=== PATIENT | female | born 2005 | race Two or more races ===

== ENCOUNTER 2025-02-06 00:36 | Emergency (ER) | payer MEDICAID ==
[~2025-02-06] VITALS: Ht 162.6 cm; Wt 55.5 kg
[2025-02-06 01:24] VITALS: BP 110/69; PULSE 87; RESP 16; TEMP 97.4; O2SAT 98
--- NOTE | 2025-02-06 02:02 | ED.PDOC ---
Back pain HPI HPI Comments PATIENT COMES WITH C/C OF LEFT THUMB PAIN AND BRUISING X 1 DAY. PATIENT DOES NOT NOW HOW IT HAPPENED REPORTS SHE JUST WOKE UP TO PAIN AND BRUISE. DENIES ANY INJURY TO THUMB Chief Complaint: Upper Extremity Time Seen by MD: 00:41 Reviewed Notes: Nurses Notes, Medications, Allergies Home Meds Active Scripts Ibuprofen Micronized (Ibuprofen) 600 Mg Tab, 600 MG PO TID for 6 Days, #18 TAB Prov:TAMARA ADDISON COOK CHILL TECHNICIAN 02/06/25 Information Source: Patient Mode of Arrival: Ambulatory Past Medical History PAST MEDICAL HISTORY: Denies Surgical History: Denies all surgeries SPOUT LINER HELPER History: No Pertinent SPOUT LINER HELPER History Family History Family History: Unknown Social History Smoker: Non-Smoker Alcohol: Denies ETOH Use Drugs: Denies Drug Use Constitutional: denies: chills, diaphoresis, fatigue, fever, malaise, sweats, weakness, others EENTM: denies: blurred vision, double vision, ear bleeding, ear discharge, ear drainage, ear pain, ear ringing, eye pain, eye redness, hearing loss, mouth pain, mouth swelling, nasal discharge, nose bleeding, nose congestion, nose pain, photophobia, tearing, throat pain, throat swelling, voice changes, others Respiratory: denies: cough, hemoptysis, orthopnea, SOB at rest, shortness of breath, SOB with excertion, stridor, wheezing, others Cardiovascular: denies: chest pain, dizzy spells, diaphoresis, Dyspnea on exertion, edema, irregular heart beat, left arm pain, lightheadedness, palpitations, PND, syncope, others Gastrointestinal: denies: abdomen distended, abdominal pain, blood streaked bowels, constipated, diarrhea, dysphagia, difficulty swallowing, hematemesis, melena, nausea, poor appetite, poor fluid intake, rectal bleeding, rectal pain, vomiting, others Genitourinary: denies: abnormal vagina bleeding, burning, dyspareunia, dysuria, flank pain, frequency, hematuria, incontinence, pain, , vagina discharge, urgency, others Neurological: denies: dizziness, fainting, headache, left sided numbness, left sided weakness, numbness, paresthesia, pre-existing deficit, right sided numbness, right sided weakness, seizure, speech problems, tingling, tremors, weakness, others Musculoskeletal: reports: others (LEFT THUMB PAIN AND BRUISING); denies: back pain, gout, joint pain, joint swelling, muscle pain, muscle stiffness, neck pain Integumetry: denies: bruises, change in color, change in hair/nails, dryness, laceration, lesions, lumps, rash, wounds, others Allergic/Immunocompromised: denies: Difficulty Healing, Frequent Infections, Hives, Itching, others Hematologic/Lymphatic: denies: anemia, blood clots, easy bleeding, easy bruising, swollen glands, others Endocrine: denies: excessive hunger, excessive sweating, excessive thirst, excessive urination, flushing, intolerance to cold, intolerance to heat, unexplained weight gain, unexplained weight loss, others Psychiatric: denies: anxiety, bipolar disorder, depression, hopeless, panic disorder, schizophrenia, sleepless, suicidal, others Physical Exam General Appearance: No Apparent Distress, Normal HEENT: Pharynx Normal Neck: Full Range of Motion, Non-Tender Respiratory: Lungs Clear, No Respiratory Distress, Normal Breath Sounds Cardiovascular: No Murmur, Normal Peripheral Pulses, Regular Rate/Rhythm Breast Exam: Deferred Gastrointestinal: Non Tender, Soft Genitalia: Deferred Pelvic: Deferred Rectal: Deferred Extremities: Normal capillary refill, Normal inspection, Normal range of motion Musculoskeletal : Location: Left Extremity Location: Thumb (NOTED ECCHYMOSIS DISTAL MEDIAL THUMB WITH MODERATE TENDERNESS ON PALPATION STRENGTH SENSORY AND MOTION INTACT CAP REFILL LESS THAN 3 SECONDS) Apperance: Normal Neurologic: Alert, solicitor patent [id number] nml as Tested, No Motor Deficits, Normal Affect, Normal Mood, No Sensory Deficits Cerebellar Function: Normal Reflexes: Normal Skin: Dry, Normal Color, Warm Lymphatic: No Adenopathy Was a procedure done? Was a procedure done?: No Back Pain Differential Dx Differential Diagnosis: Fracture, Musculoskeletal Pain, Strain X-Ray, Labs, Meds, VS Vital Signs Date Time Temp Pulse Resp B/P (MAP) Pulse Ox O2 Delivery O2 Flow Rate FiO2 02/06/25 01:24 97.4 87 16 110/69 (83) 98 97.4 02/06/25 01:24 97.4 87 16 110/69 (83) 98 97.4 02/06/25 01:24 Room Air X-Ray, Labs, Meds, VS Comment Mildly displaced fracture of the medial volar aspect of the base of the 1st distal phalanx consistent with avulsion injury. The visualized joint spaces are otherwise normal in appearance. Soft tissues are unremarkab PATIENT PLACED IN FROG SPLINT. SCRIPT IBUPROFEN 600 MG T.I.D. PRN ADVISED TO TAKE MEDICATIONS PRESCRIBED SIDE EFFECTS DISCUSSED. ADVISED ON RICE. ADVISED TO FOLLOW UP WITH HER PCP IN 2 DAYS NECESSARY ER RETURN PRECAUTIONS GIVEN PATIENT INDICATES UNDERSTANDING AND AGREES WITH DISCHARGE PLAN OF CARE. Time of 1ST Reevaluation: 02:01 Reevaluation 1ST: Unchanged Time of 2ND Reevaluation: :46 Reevaluation 2ND: Improved Patient Education/Counseling: Diagnosis, Treatment, Prognosis, Need For Follow Up Family Education/Counseling: No Family Present Departure 1 Departure Time of Disposition: :46 Impression: Primary Impression: Fracture of thumb, left, closed Qualified Codes: S62.522A - Displaced fracture of distal phalanx of left thumb, initial encounter for closed fracture Disposition: 01 HOME / SELF CARE / HOMELESS Condition: Stable e-Prescriptions Ibuprofen Micronized (Ibuprofen) 600 Mg Tab 600 MG PO TID for 6 Days, #18 TAB Prov: TAMARA ADDISON 02/06/25 Discharged With: Self Critical Care Note Critical Care Time?: No Stability Stability form required: No TAMARA ADDISON Feb 06, 2025 02:02
--- NOTE | 2025-02-06 02:37 | DVH ---
CLINICAL INDICATION: 1ST DIGIT PAIN/SWELLING TECHNIQUE: XY L HAND 3V XRAY Comparison: None FINDINGS/IMPRESSION: : Mildly displaced fracture of the medial volar aspect of the base of the 1st distal phalanx consistent with avulsion injury. The visualized joint spaces are otherwise normal in appearance. Soft tissues are unremarkable.
[2025-02-06] MEDS ORDERED: IBUP1TAB5 PO (02:48)
== END 2025-02-06 02:53 | disposition home or self-care (01) ==
LOC: ER 00:36
DX: S62.522A Displaced fracture of distal phalanx of left thumb, initial encounter for closed fracture (principal); Z79.1 Long term (current) use of non-steroidal anti-inflammatories (NSAID); X58.XXXA Exposure to other specified factors, initial encounter; Y93.89 Activity, other specified; Y92.89 Other specified places as the place of occurrence of the external cause; Y99.8 Other external cause status
CPT/HCPCS: 29130; 73130